=== PATIENT | female | born 1975 | race Caucasian/White ===

== ENCOUNTER → 2016-11-16 | Outpatient (CLI) | payer BC ==
[2016-11-16 10:48] VITALS: BP 123/75
== END ==
LOC: MHUC 10:05
PROVIDERS: ATTEND Physician Assistant
DX: J01.00 Acute maxillary sinusitis, unspecified (principal)
CPT/HCPCS: 99213

== ENCOUNTER → 2016-11-21 | Outpatient (CLI) | payer BC ==
[2016-11-22 08:18] VITALS: BP 134/86
== END ==
LOC: MHUC 19:30
PROVIDERS: ATTEND Physician Assistant Medical
DX: J01.40 Acute pansinusitis, unspecified (principal); J06.9 Acute upper respiratory infection, unspecified
CPT/HCPCS: 99213

== ENCOUNTER → 2017-02-11 | Outpatient (REF) | payer BC ==
[~2017-02-11] MED LIST: AMOX500T2 PO; AZIT250T81 PO; DULO60CA58 PO; HYDR50TA3 PO; LORA-405 PO; ONDAN4ODT PO; OXYC1TAB87 PO; PRED20TA PO; SERT25TA
[2017-02-11 14:58] LABS: BASOPHILS % (AUTO) 0 % (0-2); EOSINOPHILS # (AUTO) 0.1 10^3uL; EOSINOPHILS % (AUTO) 1 % (0-4); LYMPHOCYTES # (AUTO) 2.3 X10^3; MEAN CORPUSCULAR HEMOGLOBIN 30.6 PG (26.0-34.0); MEAN CORPUSCULAR HGB CONC 35.3 g/dL (31.0-37.0); MEAN CORPUSCULAR VOLUME 87 FL (80-100); MEAN PLATELET VOLUME 8.9 FL (6.0-9.5); MONOCYTES # (AUTO) 0.7 X10^3; MONOCYTES % (AUTO) 9 % (3-11); NEUTROPHILS % (AUTO) 62 % (51-67); PLATELET COUNT 313 10^3uL (150-450); WHITE BLOOD COUNT 8.14 10^3uL (4.0-11.0)
[2017-02-11 15:20] LABS: BILIRUBIN,URINE Negative (Negative); CLARITY,URINE Clear; COLOR,URINE Yellow; GLUCOSE, URINE (UA) Negative (Negative); LEUKOCYTE ESTERASE ,URINE Negative (Negative); PH,URINE 6.5 (5.0 - 8.0); UROBILINOGEN,URINE 0.2 mg/dL (0.2-1.0)
[2017-02-11 15:40] LABS: ERYTHROCYTE SEDIMENTATION RT* 16 mm/hr (0-21)
[2017-02-11 15:58] LABS: URINE CENTRIFUGED VOLUME 12 mL
[2017-02-11 15:59] LABS: ALBUMIN 4.6 g/dL (3.4-5.0); ALKALINE PHOSPHATASE 63 U/L (38-126); ANION GAP 14.8 MEQ/L (3-15); BUN/CREATININE RATIO 13 (10-20); CALCULATED IONIZED CALCIUM 4.3 mg/dL (3.8-4.6); TOTAL PROTEIN 7.7 g/dL (6.4-8.5)
[2017-02-12 02:27] LABS: ANTI NUCLEAR ANTIBODY SCREEN Negative (Negative)
[2017-02-13 14:20] LABS: ALDOLASE 3.8 U/L (<7.7)
== END ==
LOC: LAB 14:32
PROVIDERS: ATTEND Family Medicine
DX: M79.1 Myalgia (principal); G62.89 Other specified polyneuropathies; M79.7 Fibromyalgia; F34.1 Dysthymic disorder; N20.0 Calculus of kidney
CPT/HCPCS: 80053; 81003; 81015; 82085; 82746; 84443; 85025; 85652; 86038; 86140; 86431

== ENCOUNTER → 2017-02-25 | Outpatient (REF) | payer BC ==
[2017-02-25 12:34] LABS: BILIRUBIN,URINE Negative (Negative); CLARITY,URINE Clear; COLOR,URINE Yellow; GLUCOSE, URINE (UA) Negative (Negative); LEUKOCYTE ESTERASE ,URINE Negative (Negative); UROBILINOGEN,URINE 0.2 mg/dL (0.2-1.0)
[2017-02-25 12:44] LABS: URINE CENTRIFUGED VOLUME 12 mL
[2017-02-25 12:49] LABS: ANION GAP 13.9 MEQ/L (3-15)
== END ==
LOC: LAB 12:24
PROVIDERS: ATTEND Family Medicine
DX: R55 Syncope and collapse (principal); E87.6 Hypokalemia; R31.21 Asymptomatic microscopic hematuria
CPT/HCPCS: 80048; 81003; 81015

== ENCOUNTER 2017-02-28 03:07 | Emergency (ER) | payer BC ==
[~2017-02-28] VITALS: Ht 180.3 cm; Wt 75.0 kg
--- OUTSIDE RECORDS SUMMARY | 2017-02-28 03:11 | XMS REPORT | Summary of Care ---
Author Author Amanuel Simms M.D. Organization Unknown Address [address] [place], [place] [id number] Phone Unavailable Care Team Providers Care Audit Clerks Supervisor Name Role Phone Amelia, Tio POSEY Unavailable Functional Status Functional Status Health Issues Name Dates Details Functional status health issues are not documented Status: Cognitive Status Health Issues Name Dates Details Cognitive status health issues are not documented Status: Problems Name Dates Details Generalized hyperreflexia (796.1, R29.2) Status: Active Paresthesias (782.0, R20.2) Status: Active Medications Name Dates Details Hydrochlorothiazide 25 MG Oral Tablet TAKE 1 TABLET DAILY. Quantity: 90 Refills: 3 Started [id number] ActiveSertraline HCl - 25 MG Oral Tablet Take 1 daily Refills: 0 Started [id number] Active Allergies and Adverse Reactions Name Dates Details No Known Drug Allergies Status: Active Past Medical History Name Dates Details History of dizziness (V13.89, Z87.898) Status: Resolved History of hiatal hernia (V12.79, Z87.19) Status: Resolved History of hypoglycemia (V12.29, Z86.39) Status: Resolved History of migraine (V12.49, Z86.69) Status: Resolved History of Numbness (782.0, R20.0) Status: Resolved History of seasonal allergies (V15.09, Z88.9) Status: Resolved History of syncope (V15.89, Z87.898) Status: Resolved History of Tingling (782.0, R20.2) Status: Resolved History of Wears contact lenses (V41.0, Z97.3) Status: Resolved History of Wears glasses (V49.89, Z97.3) Status: Resolved Procedures Procedure Dates Details History of Dental Surgery History of Ovarian Cystectomy History of Renal Lithotripsy Procedures not documented Immunization Name Dates Details Immunizations not documented Family History Mother Name Dates Details Family history of Herniated disc (722.2) Status: Active Father Name Dates Details Family history of cardiac disorder (V17.49, Z82.49) Status: Active Sister Name Dates Details Family history of malignant neoplasm of thyroid (V16.8, Z80.8) Status: Active Brother Name Dates Details Family history of gastric ulcer (V18.59, Z83.79) Status: Active Social History Smoking StatusUnknown if ever smoked Vital Signs Date Test Result Details No Known Vitals to report Results Date Description Value Details Results not documented Plan of Care Planned Observations Name Dates Details Planned Goals not documented Goal Instructions Instructions not documented Encounters Appointment; Amanuel Simms Encounter Diagnosis: Problem not documented On 30-Jun-2015 15:00 Appointment; Amanuel Simms Encounter Diagnosis: Problem not documented On 10:00
[2017-02-28] MEDS ORDERED: HCT25T PO (03:32)
[2017-02-28] MEDS ORDERED: AMOX875T47 PO (03:32)
[2017-02-28] MEDS ORDERED: [UNRECOGNIZED DRUG - OTHER] (03:33)
[2017-02-28] MEDS ORDERED: POTA99TA16 PO (03:37)
[2017-02-28 04:21] LABS: MEAN CORPUSCULAR HEMOGLOBIN 30.7 PG (26.0-34.0); MEAN CORPUSCULAR HGB CONC 35.1 g/dL (31.0-37.0); MEAN PLATELET VOLUME 8.5 FL (6.0-9.5); WHITE BLOOD COUNT 7.18 10^3uL (4.0-11.0)
[2017-02-28 04:34] LABS: ANION GAP 13.3 MEQ/L (3-15)
[2017-02-28 05:42] VITALS: BP 127/75
== END 2017-02-28 05:48 | disposition home or self-care (01) ==
LOC: ED 03:09
DX: N93.8 Other specified abnormal uterine and vaginal bleeding (principal)
CPT/HCPCS: 36415; 80048; 84703; 85027; 99282; 99283